=== PATIENT | female | born 1985 | race Caucasian/White ===

== ENCOUNTER 2018-05-31 00:36 | Emergency (ER) | payer OTHER, MEDICAID ==
[~2018-05-31] VITALS: Ht 175.3 cm; Wt 137.9 kg
[2018-05-31] MEDS ORDERED: HYDROCODONE-AP1 EAC6 PO (01:14)
[2018-05-31 01:37] VITALS: BP 125/78
== END 2018-05-31 01:59 | disposition home or self-care (01) ==
LOC: M.ERS 00:36
DX: S99.922A Unspecified injury of left foot, initial encounter (principal); W20.8XXA Other cause of strike by thrown, projected or falling object, initial encounter; Y93.89 Activity, other specified; Y92.89 Other specified places as the place of occurrence of the external cause; Y99.8 Other external cause status; J45.909 Unspecified asthma, uncomplicated; E05.90 Thyrotoxicosis, unspecified without thyrotoxic crisis or storm; F17.210 Nicotine dependence, cigarettes, uncomplicated; Z98.890 Other specified postprocedural states

== ENCOUNTER 2018-12-02 15:17 | Emergency (ER) | payer OTHER, MEDICAID ==
[~2018-12-02] VITALS: Ht 175.3 cm; Wt 130.6 kg
[~2018-12-02 15:17] MED LIST: HYDROCODONE-AP1 EAC6 PO
[2018-12-02 15:49] LABS: ABSOLUTE EOSINOPHILS 0.1 thou/uL (0.0-0.7); ABSOLUTE MONOCYTES 0.7 thou/uL (0.0-1.2); ABSOLUTE NEUTROPHILS 10.3 thou/uL (1.6-8.1); BASOPHILS 0.3 %; EOSINOPHILS 0.5 %; HEMOGLOBIN 14.4 gm/dL (12.0-15.0); LYMPHOCYTES 15.4 %; MCH 28.3 pg (26.0-34.0); MCHC 33.6 g/dL (28.0-37.0); MCV 84.3 fL (80.0-100.0); MONOCYTES 5.3 %; MPV 8.4 fl. (7.2-11.1); NUCLEATED RBCS 0 /100WBC; PLATELET COUNT* 311 thou/uL (150-400); POLYS 78.5 %; RDW-CV 13.1 % (10.5-14.5); WBC 13.1 thou/uL (4.0-11.0)
[2018-12-02 15:58] LABS: ALBUMIN 3.9 g/dL (3.4-5.0); CALCIUM 9.4 mg/dL (8.5-10.1); CREATININE 0.7 mg/dL (0.6-1.3); TOTAL BILIRUBIN 0.3 mg/dL (<0.1-1.0); TOTAL PROTEIN 7.9 g/dL (6.4-8.2)
[2018-12-02 17:17] LABS: URINE BILIRUBIN NEGATIVE (Negative); URINE BLOOD 3+ (Negative); URINE CLARITY CLEAR; URINE COLOR YELLOW; URINE GLUCOSE-RANDOM NEGATIVE (Negative); URINE KETONES 1+ (Negative); URINE LEUKOCYTES-REFLEX NEGATIVE (Negative); URINE NITRITE-REFLEX NEGATIVE (Negative); URINE PROTEIN NEGATIVE (Negative); URINE SPECIFIC GRAVITY >= 1.030 (1.005-1.030); URINE UROBILINOGEN 0.2 E.U./dl (0.2-1.0)
[2018-12-02 17:26] LABS: MUCUS None Seen strn/LPF (None Seen); SQUAMOUS >10 Many /LPF (0-3); URINE RBC 3-10 Few /HPF (0-2)
[2018-12-02 17:27] LABS: CASTS None Seen /LPF (None Seen); CRYSTALS None Seen /LPF (None Seen); URINE WBC-REFLEX 0-5 Rare /HPF (0-5)
[2018-12-02] MEDS ORDERED: NORCO 5-325 TA1 EACH PO (17:48)
[2018-12-02 18:19] VITALS: BP 123/72
== END 2018-12-02 18:21 | disposition home or self-care (01) ==
LOC: M.ERS 15:17
PROVIDERS: Nurse Practitioner Family
DX: O20.0 Threatened abortion (principal); R19.09 Other intra-abdominal and pelvic swelling, mass and lump; F17.210 Nicotine dependence, cigarettes, uncomplicated; J45.909 Unspecified asthma, uncomplicated; E05.90 Thyrotoxicosis, unspecified without thyrotoxic crisis or storm; Z87.442 Personal history of urinary calculi; Z3A.01 Less than 8 weeks gestation of pregnancy

== ENCOUNTER 2020-09-24 21:56 | Emergency (ER) | payer OTHER, MEDICAID ==
[~2020-09-24] VITALS: Ht 175.3 cm; Wt 147.0 kg
[~2020-09-24 21:56] MED LIST changes: +NORCO 5-325 TA1 EACH PO
[2020-09-24] MEDS ORDERED: ENOXAPARIN30 MG/0.1 SUBQ (22:18)
[2020-09-24] MEDS ORDERED: IRON325 M1 PO (22:19)
[2020-09-24] MEDS ORDERED: ZOLOFT50 M1 PO (22:20)
[2020-09-24] MEDS ORDERED: ASPIRIN EC81 M1 PO (22:20)
[2020-09-24] MEDS ORDERED: COLACE100 MG PO (22:21)
[2020-09-24] MEDS ORDERED: FISH OIL 1,001000 M3 PO (22:21)
[2020-09-24 22:25] VITALS: BP 143/87
== END 2020-09-24 22:25 | disposition home or self-care (01) ==
LOC: M.ERS 21:56
DX: Z48.01 Encounter for change or removal of surgical wound dressing (principal); E03.9 Hypothyroidism, unspecified; J45.909 Unspecified asthma, uncomplicated; F17.210 Nicotine dependence, cigarettes, uncomplicated; Z98.890 Other specified postprocedural states; Z87.442 Personal history of urinary calculi

== ENCOUNTER 2021-03-24 00:32 | Emergency (ER) | payer OTHER, MEDICAID ==
[~2021-03-24] VITALS: Ht 175.3 cm; Wt 141.5 kg
[~2021-03-24 00:32] MED LIST changes: +ASPIRIN EC81 M1 PO; +COLACE100 MG PO; +ENOXAPARIN30 MG/0.1 SUBQ; +FISH OIL 1,001000 M3 PO; +IRON325 M1 PO; +ZOLOFT50 M1 PO
[2021-03-24] MEDS ORDERED: PENICILLIN VK250 MG PO (01:57)
[2021-03-24 02:07] VITALS: BP 147/96
== END 2021-03-24 02:08 | disposition home or self-care (01) ==
LOC: M.ERS 00:32
DX: K08.89 Other specified disorders of teeth and supporting structures (principal); F17.210 Nicotine dependence, cigarettes, uncomplicated; E05.90 Thyrotoxicosis, unspecified without thyrotoxic crisis or storm; J45.909 Unspecified asthma, uncomplicated; Z98.890 Other specified postprocedural states; Z87.442 Personal history of urinary calculi